=== PATIENT | female | born 1990 | race Hispanic/Latino ===

== ENCOUNTER → 2016-08-17 | Outpatient (REF) | payer OTHER | LOC: M LAB REF 16:30 | PROVIDERS: ATTEND Physician Assistant | DX: L02.214 Cutaneous abscess of groin (principal); R30.0 Dysuria ==

== ENCOUNTER → 2016-08-25 | Outpatient (REF) | payer OTHER | LOC: M LAB REF 12:39 | PROVIDERS: ATTEND Nurse Practitioner Women's Health | DX: R31.9 Hematuria, unspecified (principal) ==

== ENCOUNTER → 2016-09-16 | Outpatient (REF) | payer OTHER ==
[2016-09-16 19:20] LABS: CALCIUM OXALATE CRYSTALS SMALL
== END ==
LOC: M LAB REF 16:19
PROVIDERS: ATTEND Obstetrics & Gynecology
DX: Z87.440 Personal history of urinary (tract) infections (principal)

== ENCOUNTER 2016-11-28 18:24 | Emergency (ER) | payer OTHER ==
[~2016-11-28] VITALS: Ht 172.7 cm; Wt 61.4 kg
[2016-11-28 22:27] LABS: MEAN CORPUSCULAR HEMOGLOBIN 32.3 pg (27.0-33.0); MEAN CORPUSCULAR VOLUME 95.1 fl (80.0-96.0); RED CELL DISTRIBUTION WIDTH 12.5 % (11.5-14.5); WHITE BLOOD COUNT 8.6 K/mm3 (4.0-10.0)
[2016-11-28 22:30] VITALS: BP 121/77
--- NOTE | 2016-11-28 23:20 | REPUSA ---
Clinical history: vaginal bleeding. Findings: Real-time transabdominal and transvaginal ultrasound images of the pelvis were obtained. An anteverted uterus is noted, measuring 9.3 x 4.6 x 5.2 cm. The uterus demonstrates normal echotextu re and echogenicity. The endometrial stripe measures 5 mm and is within normal limits. The right ova ry measures 3.4 x 2.3 x 2.8 cm. The left ovary measures 3.5 x 1.7 x 3.2 cm. No adnexal masses are se en. Color Doppler flow is seen within both ovaries. There is no evidence of free fluid. Impression: Unremarkable ultrasound examination of the pelvis. No evidence of an intrauterine gestati on. Serum beta hCG levels were not available at this time. However, if this is positive, differentia l diagnosis includes early , missed , or ectopic . Serial serum beta hCG le vels would be recommended for further evaluation. [facility]SA
== END 2016-11-28 23:20 | disposition home or self-care (01) ==
LOC: M ED 21:41
DX: O20.0 Threatened abortion (principal); Z3A.00 Weeks of gestation of pregnancy not specified

== ENCOUNTER → 2016-12-05 | Outpatient (CLI) | payer OTHER | LOC: M WUC 10:10 | PROVIDERS: ATTEND Nurse Practitioner Women's Health | DX: Z32.01 Encounter for pregnancy test, result positive (principal) ==

== ENCOUNTER → 2016-12-07 | Outpatient (CLI) | payer OTHER | LOC: M LAB 12:38 | PROVIDERS: ATTEND Nurse Practitioner Women's Health | DX: Z32.01 Encounter for pregnancy test, result positive (principal); N93.9 Abnormal uterine and vaginal bleeding, unspecified ==

== ENCOUNTER → 2016-12-28 | Outpatient (REF) | payer OTHER ==
[2016-12-28 17:45] LABS: FREE T4 0.98 NG/DL (0.76-1.46); HCG, SERUM QUANTITATIVE < 1.0 MIU/ML
== END ==
LOC: M LAB REF 16:36
PROVIDERS: ATTEND Advanced Practice Midwife
DX: O20.0 Threatened abortion (principal); E04.9 Nontoxic goiter, unspecified; Z3A.00 Weeks of gestation of pregnancy not specified; O99.280 Endocrine, nutritional and metabolic diseases complicating pregnancy, unspecified trimester

== ENCOUNTER → 2017-01-06 | Outpatient (REF) | payer OTHER ==
[2017-01-06 16:05] LABS: FREE T4 1.01 NG/DL (0.76-1.46)
== END ==
LOC: M LAB REF 14:53
PROVIDERS: ATTEND Advanced Practice Midwife
DX: E04.9 Nontoxic goiter, unspecified (principal)

== ENCOUNTER → 2017-01-11 | Outpatient (REF) | payer OTHER ==
[2017-01-11 17:45] LABS: THYROID PEROXIDASE ANTIBODY < 28.0 U/ML (<60.0)
== END ==
LOC: M LAB REF 16:30
PROVIDERS: ATTEND Advanced Practice Midwife
DX: E04.9 Nontoxic goiter, unspecified (principal)

== ENCOUNTER → 2017-02-28 | Outpatient (REF) | payer OTHER ==
[2017-02-28 12:48] LABS: MEAN CORPUSCULAR HEMOGLOBIN 32.3 pg (27.0-33.0); RED CELL DISTRIBUTION WIDTH 12.9 % (11.5-14.5); WHITE BLOOD COUNT 8.3 K/mm3 (4.0-10.0)
[2017-02-28 13:49] LABS: HCG, SERUM QUANTITATIVE 307 MIU/ML
[2017-02-28 18:03] LABS: FREE T4 1.06 NG/DL (0.76-1.46)
== END ==
LOC: M LAB REF 12:19
PROVIDERS: ATTEND Advanced Practice Midwife
DX: O36.80X0 Pregnancy with inconclusive fetal viability, not applicable or unspecified (principal); Z3A.00 Weeks of gestation of pregnancy not specified

== ENCOUNTER → 2017-03-02 | Outpatient (REF) | payer OTHER | LOC: M LAB REF 09:36 | PROVIDERS: ATTEND Advanced Practice Midwife | DX: O36.80X0 Pregnancy with inconclusive fetal viability, not applicable or unspecified (principal); Z3A.00 Weeks of gestation of pregnancy not specified ==

== ENCOUNTER → 2017-04-11 | Outpatient (REF) | payer OTHER | LOC: M LAB REF 12:39 | PROVIDERS: ATTEND Advanced Practice Midwife | DX: N76.0 Acute vaginitis (principal); B96.89 Other specified bacterial agents as the cause of diseases classified elsewhere ==